=== PATIENT | female | born 1960 | race Caucasian/White ===

== ENCOUNTER 2021-09-05 01:06 | Day surgery (SDC) | payer BC, SELFPAY ==
[2021-08-28 15:23] VITALS: BMI 38.0
[2021-09-05] VITALS (10 sets, daily range): BP systolic 114–144; BP diastolic 67–79; PULSE 60–73; RESP 16–18; TEMP 36.5; O2SAT 99–100
--- NOTE | 2021-09-05 07:15 | WPDHPUPDATE1 ---
History and Physical Update Update Date/Time: 09/05/21 07:15 History and Physical has been reviewed, including an updated exam of the patient. There are NO changes in the patient's condition. Risks, benefits, and alternatives have been discussed and questions answered. Patient agrees to proceed with procedure.
[2021-09-05] MEDS: LIDO 1%/EPINEPHRINE 1:100,000 50 ML VIAL INFILTRATE (08:31)
[2021-09-05] MEDS: BACITRACIN OINTMENT 15 GM TUBE 1 APPLIC TOPICAL (08:32)
--- NOTE | 2021-09-05 10:10 | W.PM.PROC2 ---
Procedure Note - Detailed Date of Procedure 09/05/21 Pre-op Diagnosis Basal Cell Ca Upper Nasal Lobule Post-op Diagnosis same Procedure Performed 1.5 cm excision of basal cell carcinoma the upper nasal lobule with frozen section and complex repair 3.5 cm Surgeon Emigdio Zelaya MD Anesthesia local Indications Biopsy proven basal cell carcinoma Findings Basal cell carcinoma with free margin Description of Procedure The site on the upper nasal lobule was marked on the patient she waited in the holding area. She was taken to the operating room where she was placed supine on the operating table. A time-out was held and confirmed. The face was prepped and draped in usual fashion. The site was carefully examined and an estimated margin was inked around the periphery. This area was infiltrated with 1% lidocaine with epinephrine. Some time was allowed for hemostatic effect. The incision was carried out as marked. A 1 cm x 1.5 cm oval was resected and the most superior aspect was identified as 12:00 o'clock with a suture. The specimen was sent down to pathology the pathologist stated the diagnosis was the same and all margins were free. Upon careful examination it appeared that the wound could be closed side to side. The margins were undermined extensively to 1 cm on both sides. This elevation was beneath the superficial fascia exposing the cartilage framework. I was able to pull the wound edges together and the patient stated that she could tell no difference in nasal airway and function. The 4-0 buried Vicryl was placed at that point in the deep subcutaneous tissue approximating the wound margins. Standing cones removed at both ends to improve the contour. Additional Vicryl sutures were placed at several sites bringing the wound edges toward the midline. Following that the skin was closed with interrupted 6 0 nylon sutures everting the edges. Estimated Blood Loss 5 Drains No Packing No Pathology yes Complications No immediate complications Condition stable Disposition same day
== END 2021-09-05 09:27 | disposition home or self-care (01) ==
PROVIDERS: PCP Family Medicine; Visit Provider Plastic Surgery
PROC: (CPT 11642; principal; 2021-09-05 07:30)
DX: C44.311 Basal cell carcinoma of skin of nose (principal); Z79.82 Long term (current) use of aspirin
CPT/HCPCS: 11642; 13152; 88305; 88331; A9270